=== PATIENT | male | born 1955 | race Caucasian/White ===

== ENCOUNTER → 2019-11-29 08:29 | Outpatient (BNVA) | payer MEDICARE, OTHER, BC, SELFPAY | PROVIDERS: Family Provider Family Medicine; PCP Family Medicine; Visit Provider Urology | DX: C61 Malignant neoplasm of prostate (principal); Z80.42 Family history of malignant neoplasm of prostate | CPT/HCPCS: 81001; 84153 ==

== ENCOUNTER → 2020-05-02 08:33 | Outpatient (BNVA) | payer MEDICARE, OTHER, SELFPAY | PROVIDERS: Family Provider Family Medicine; PCP Family Medicine; Visit Provider Urology | DX: C61 Malignant neoplasm of prostate (principal); Z80.42 Family history of malignant neoplasm of prostate | CPT/HCPCS: 81001; 84153 ==

== ENCOUNTER 2022-03-27 09:22 | Outpatient (CLI) | payer MEDICARE, OTHER, SELFPAY ==
--- NOTE | 2022-03-27 09:34 | NM_ITS ---
WS: [id number] NUCLEAR MEDICINE BONE SCAN Radiopharmaceutical: 23.5 Tc-99m MDP mCi IV Injection site: RIGHT antecubital Postinjection imaging delay: 1 hr CLINICAL INFORMATION: MALIGNANT NEOPLASM OF PROSTATE COMPARISON: None. FINDINGS: Bone lesions: There are no osseous lesions suspicious for metastatic disease. Soft tissue contours: Normal. Kidneys: Normal. Other findings: Uptake about the RIGHT MARQUIS. Degenerative type uptake both AC joints, sternoclavicular joints, and both kidneys. NM/NM bone scan whole body* [id number] IMPRESSION: No evidence of osseous metastatic disease.
--- NOTE | 2022-03-27 09:34 | CT_ITS ---
WS: [id number] CT ABDOMEN PELVIS TECHNIQUE: Contrast-enhanced CT of the abdomen and pelvis with coronal and sagittal reformatted image s. CLINICAL INFORMATION: MALIGNANT NEOPLASM OF PROSTATE COMPARISON: CT 8 27,019 DLP: 1607.[address] scans at [facility] use at least one of these dose optimization techniques: automated e xposure control; mA and/or kV adjustment per patient size (includes targeted exams where dose is matc hed to clinical indication); or iterative reconstruction. FINDINGS: Lung bases are well aerated. Mild diffuse fatty infiltration of the liver. Splenic granulomas. Normal GE junction. Normal portal vein and splenic vein. Cholelithiasis. Adrenal glands are normal. Normal pancreatic parenchymal enhancement. Normal caliber abdominal aorta. Mild aortic calcification. Normal renal parenchymal enhancement. Adrenal glands are normal. No hydronephrosis in RIGHT kidney. Dilated LEFT renal pelvis or peripelvic renal cyst similar to 2019. RIGHT MARQUIS degrades images in the pelvis. Prostate calcification. Prostate measures 4.8 x 3.7 cm. Sigm oid diverticulosis. No evidence of acute diverticulitis. No adenopathy in the abdomen or pelvis. No e vidence of blastic bony metastatic disease. Small fat-containing umbilical hernia. CT/CT abdomen pelvis w con* [id number] IMPRESSION: 1. No evidence of blastic metastatic disease. 2. RIGHT MARQUIS degrades images in the pelvis. Prostate calcification. 3. No abdominal or pelvic lymphadenopathy. 4. Sigmoid diverticulosis. No evidence of acute diverticulitis. 5. Extensive cholelithiasis. No gallbladder wall thickening. 6. LEFT peripelvic renal cysts or dilated renal pelvis similar to 2019. 7. Sigmoid diverticulosis. No evidence of acute diverticulitis
[2022-03-27 17:09] LABS: Blood Urea Nitrogen 14 mg/dL (8-23); Glomerular Filtration Rate 96.1 mL/min (90-130)
== END 2022-03-27 09:23 | disposition home or self-care (01) ==
LOC: RAD 09:26
PROVIDERS: PCP Family Medicine; Visit Provider Physician Assistant
DX: C61 Malignant neoplasm of prostate (principal); K57.30 Diverticulosis of large intestine without perforation or abscess without bleeding; K80.20 Calculus of gallbladder without cholecystitis without obstruction
CPT/HCPCS: 74177; 78306; 82565; 84520; A9561; Q9967

== ENCOUNTER 2022-05-21 14:12 | Oncology outpatient (recurring) (ONCR) | payer MEDICARE, OTHER, SELFPAY ==
--- NOTE | 2022-05-21 16:32 | ONCRAD EPV_ITS ---
Radiation Oncology Established Patient Visit Patient: Michael Hatfield [id number] : 1955> Age: 66> Sex: Male> Dictated by: Dr. Dalton Jeter Date of Service: 05/21/2022 Referring Physician(s) : Dr. Sj Abernathy and Dr. Eliud Amin Diagnosis: C61 - Malignant neoplasm of prostate, Diagnosed 05/27/2019 (Active) Stage T2b, N0, M0 Radiotherapy to Date: None. Current History: Mr. Rodriguez is a 66-year-old man who was found to have cancer of the prostate in 2019. He was seen in consultation by Dr. Loera. According to Dr. Loera's note, he had a PSA of 8.6, Bonnie score of 3+3 in 6 of 12 cores, and a palpable prostate nodule. He had negative imaging. His stage was [id number]. Dr. Loera planned to proceed with external beam radiation but Mr. Rodriguez decided to seek surgical consultation. I do not know if he actually had a visit but but according to Dr. Amin's note he was diagnosed with a [place] 6 cancer and was lost to follow-up. According to Mr. Rodriguez, he had some social issues which required his attention and he could not arrange to proceed with surgery. He thinks his PSA just before recent surgery was about 14. He had a bone scan 03/27/2022 that did not show any evidence of osseous metastatic disease. He had a CT of the abdomen and pelvis 03/27/2022 that was negative for lymphadenopathy or any other evidence of disease. The prostate measured 4.8 x 3.7 cm on that study. Surgery was performed 04/21/2022. A single lymph node was removed from each side of the pelvis and both were negative. The prostate was 75% occupied by a mass that measured 4 x 3 x 2.6 cm. Grossly the mass occupied 90% of the right side of the prostate and 30% of the left side with extension from apex to base. Histology was acinar adenocarcinoma. Histologic grade was Bonnie score 5+4 equal 9, grade group 5. Extraprostatic extension was noted, urinary bladder neck invasion was present, seminal vesicle invasion was present bilaterally, lymphovascular invasion was present and perineural invasion was present. The cancer extended to multiple margins including the right and left apex, right and left bladder base, right and left seminal vesicles, right vas deferens, right lateral and right posterior prostate. Stage was [id number]. started Mr. Rodriguez on Casodex and Lupron. Will be on Casodex 30 days and Lupron 1 year. He has requested that Mr. Rodriguez be evaluated for adjuvant radiation. Mr. Rodriguez tolerated surgery well overall. His only postop problem at this time is incontinence. He is doing Kegel exercises and states the incontinence is gradually improving. Current Medications: Acetaminophen, nia Allergy, fLUoxetine HCl, ibuprofen, naproxen, protonix, temazepam, traMADol HCl, zetia. Allergies: Statins. Current Complaints / Review of Systems: . Vital Signs: Performed on 05/21/2022 2:23 PM BMI - 26.193 kg/m2 (high), Height - 71 in, Weight - 187.8 lbs, Temperature - 99.3 f, Pulse - 67 /min, Respiration - 20 /min, O2 Sat - 97 %, Pain - 0, Fatigue - 0 and BP - 157/ 89 mm(hg)(high/). Physical Exam: General: Alert and oriented x 3. No acute distress. HEENT: Normocephalic, atraumatic. NECK: Supple without supraclavicular or jugular lymphadenopathy. LUNGS: Clear to auscultation bilaterally without rales, rhonchi or wheeze. HEART: Regular rate and rhythm, normal S1 and S2 without murmur, gallop or rub. MUSCULOSKELETAL: No tenderness or percussion pain over the axial skeleton, scapulae or pelvis. ABDOMEN: Soft, nontender, nondistended without masses or organomegaly. Bowell sounds are present. NEUROLOGIC: Cranial nerves II ???XII are grossly intact. Normal gait, no ataxia. Performance Status: ECOG 1 Lab: None pending. Pathology: Primary, c61 - malignant neoplasm of prostate, Diagnosed 05/27/2019 (active) stage x, t2b, nx, mx. 2021: Stage [id number] Imaging: See HPI Impression: Mr. Rodriguez is a candidate for postoperative radiation delivered in conjunction with hormonal therapy because of a high-grade cancer with seminal vesicle involvement and multiple positive margins. I discussed that with Mr. Rodriguez. I reviewed an approximately 7-week course of radiation. I discussed side effects and possible complications. I told him that it is important that he regain as much control of his bladder as possible before radiation is initiated. I discussed the side effects related to treatment. I discussed the remote risk of bowel or bladder injury that could require surgery. He wishes to proceed as recommended. He will return he will see Dr. Amin in late June and will return to the radiation center according to Dr. Amin's recommendation. Signed by: 05/21/2022 4:31:27 PM <<Signature on File>> Time spent with patient: CPT Code: CPT Code:
== END 2022-06-01 23:59 | disposition home or self-care (01) ==
PROVIDERS: PCP Family Medicine; Visit Provider Specialist
DX: C61 Malignant neoplasm of prostate (principal); C77.8 Secondary and unspecified malignant neoplasm of lymph nodes of multiple regions; C79.11 Secondary malignant neoplasm of bladder; Z79.899 Other long term (current) drug therapy
CPT/HCPCS: 99205

== ENCOUNTER 2022-12-05 10:36 | Oncology outpatient (recurring) (ONCR) | payer MEDICARE, OTHER, SELFPAY ==
--- NOTE | 2022-12-05 11:23 | ONCRAD EPV_ITS ---
Radiation Oncology Follow-Up Note Patient Name: Liu Rodriguez Date of : 1955 Date of Service: 12/05/2022 Attending Physician: Eliud Faustin M.D. Liu Rodriguez was seen for follow-up this morning in the management of a previously diagnosed prostate cancer. He initially was diagnosed in 2019 with prostate cancer. The initial PSA was 8.6 ng/mL. A TRUS biopsy completed on May 27, 2019 diagnosed an adenocarcinoma the prostate gland with a Bonnie score 3+3. A laparoscopic robot-assisted prostatectomy with bilateral pelvic lymphadenectomy was performed by Eliud Amin M.D. on April 21, 2022. The pathology report (outside hospital records were requested and reviewed in [facility]) confirmed an adenocarcinoma of the prostate (75% involvement) with a Bonnie score of 5+4 (grade group 5). Surgical margins were positive. Extraprostatic extension, urinary bladder neck invasion, lymphovascular invasion, and perineural invasion were present. A total of 2 pelvic lymph nodes (1 right pelvic lymph node and 1 left pelvic lymph node) did not harbor malignancy. Total androgen deprivation was prescribed. He was referred for adjuvant radiotherapy. I will request a PSMA scan for evaluation of potential metastatic disease. I have also ordered labs including PSA and testosterone levels. Signed by: Dr. Eliud Faustin 12/05/2022 11:22:19 AM
[2022-12-05 12:08] LABS: Alanine Aminotransferase 39 U/L (0-41); Albumin Level 4.6 g/dL (3.5-5.2); Alkaline Phosphatase 121 U/L (40-130); Anion Gap 15.7 (5-19); Aspartate Amino Transferase 28 U/L (0-40); Blood Urea Nitrogen 16 mg/dL (8-23); Calcium 9.7 mg/dL (8.5-10.5); Carbon Dioxide 25 mmol/L (22-29); Chloride 101 mmol/L (98-107); Globulin 2.5 g/dL (1.3-4.6); Glomerular Filtration Rate 95.8 mL/min (90-130); Glucose 93 mg/dL (65-115); Osmolality Calculated 285 mOsm/kg (285-295); Potassium 4.7 mmol/L (3.5-5.1); Sodium 137 mmol/L (136-145); Total Bilirubin 0.5 mg/dL (0.15-1.2); Total Protein 7.1 g/dL (6.6-8.7)
[2022-12-05 12:09] LABS: Testosterone Total 2.5 ng/dL (193-740)
[2022-12-05 12:13] LABS: Prostate Specific Antigen < 0.014 ng/mL (0-4)
== END 2022-12-30 23:59 | disposition home or self-care (01) ==
LOC: ONCMED 10:39
PROVIDERS: PCP Family Medicine; Visit Provider Radiology Radiation Oncology
DX: C61 Malignant neoplasm of prostate (principal); Z90.89 Acquired absence of other organs; Z79.818 Long term (current) use of other agents affecting estrogen receptors and estrogen levels; Z79.899 Other long term (current) drug therapy; Z92.3 Personal history of irradiation
CPT/HCPCS: 36415; 80053; 84153; 84403; 99214

== ENCOUNTER 2023-01-30 10:23 | Oncology outpatient (recurring) (ONCR) | payer MEDICARE, OTHER, SELFPAY ==
--- NOTE | 2023-01-30 11:09 | ONCRAD EPV_ITS ---
Radiation Oncology Follow-Up Note Patient Name: Liu Rodriguez Date of : 1955 Date of Service: 01/30/2023 Attending Physician: Eliud Faustin M.D. Liu Rodriguez was scheduled to review the results of a PSMA scan. He initially was diagnosed in 2018 with prostate cancer. The initial PSA was 8.6 ng/mL. A TRUS biopsy completed on May 27, 2019 diagnosed an adenocarcinoma the prostate gland with a [place] score 3+3. A laparoscopic robot-assisted prostatectomy with bilateral pelvic lymphadenectomy was performed by Eliud Amin M.D. on April 21, 2022. The pathology report (outside hospital records were requested and reviewed in [facility]) confirmed an adenocarcinoma of the prostate (75% involvement) with a Bonnie score of 5+4 (grade group 5). Surgical margins were positive. Extraprostatic extension, urinary bladder neck invasion, lymphovascular invasion, and perineural invasion were present. A total of 2 pelvic lymph nodes (1 right pelvic lymph node and 1 left pelvic lymph node) did not harbor malignancy. Total androgen deprivation was prescribed by his urologist. A PSA obtained in December was < 0.04 ng/mL and his testosterone level was 115 ng/dL. A PSMA scan ordered on January 16, 2023 subcentimeter lymphadenopathy within the right pelvis and right retropharyngeal space and a right third rib lesion (SUV 2.2) concerning for early metastatic disease. I will refer the patient to medical oncology for consideration of systemic therapy in conjunction with androgen deprivation therapy. Signed by: Eliud Faustin 01/30/2023 11:08:52 AM
== END 2023-01-30 23:59 | disposition home or self-care (01) ==
PROVIDERS: PCP Family Medicine; Visit Provider Radiology Radiation Oncology
DX: C61 Malignant neoplasm of prostate (principal); Z90.89 Acquired absence of other organs; Z79.818 Long term (current) use of other agents affecting estrogen receptors and estrogen levels; Z79.899 Other long term (current) drug therapy; Z92.3 Personal history of irradiation; R59.0 Localized enlarged lymph nodes; M89.9 Disorder of bone, unspecified
CPT/HCPCS: 99214

== ENCOUNTER 2023-02-12 07:55 | Oncology outpatient (recurring) (ONCR) | payer MEDICARE, OTHER, SELFPAY | END 2023-03-01 23:59 | disposition home or self-care (01) | PROVIDERS: PCP Family Medicine; Visit Provider Radiology Radiation Oncology | DX: C61 Malignant neoplasm of prostate (principal); Z90.89 Acquired absence of other organs; Z79.818 Long term (current) use of other agents affecting estrogen receptors and estrogen levels; Z79.899 Other long term (current) drug therapy; Z92.3 Personal history of irradiation; M89.9 Disorder of bone, unspecified; R59.0 Localized enlarged lymph nodes; Z79.52 Long term (current) use of systemic steroids | CPT/HCPCS: 99204 ==

== ENCOUNTER 2023-07-31 11:19 | Oncology outpatient (recurring) (ONCR) | payer MEDICARE, OTHER, SELFPAY ==
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
[2023-07-15 10:39] VITALS: BP 183/79; PULSE 71; RESP 18; TEMP 36.8; O2SAT 99
[2023-07-15 11:23] LABS: Prostate Specific Antigen < 0.014 ng/mL (0-4)
[2023-07-16 12:54] LABS: Alanine Aminotransferase 34 U/L (0-41); Albumin Level 4.5 g/dL (3.5-5.2); Alkaline Phosphatase 125 U/L (40-130); Anion Gap 16.3 (5-19); Aspartate Amino Transferase 21 U/L (0-40); Blood Urea Nitrogen 17 mg/dL (8-23); Calcium 9.3 mg/dL (8.5-10.5); Carbon Dioxide 22 mmol/L (22-29); Chloride 104 mmol/L (98-107); Globulin 2.6 g/dL (1.3-4.6); Glomerular Filtration Rate 95.8 mL/min (90-130); Glucose 92 mg/dL (65-115); Osmolality Calculated 285 mOsm/kg (285-295); Potassium 5.3 mmol/L (3.5-5.1); Sodium 137 mmol/L (136-145); Total Bilirubin 0.4 mg/dL (0.15-1.2); Total Protein 7.1 g/dL (6.6-8.7)
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
--- NOTE | 2023-07-29 16:28 | ONCRAD TMN_ITS ---
Radiation Oncology Weekly Treatment Management Patient: Michael Velazquez MR#: [id number] : 1955> Attending Physician: Oj He Date of Service: 07/29/2023 Referring Physician(s) : Dr. Sj Abernathy Diagnosis: C61 - Malignant neoplasm of prostate, Diagnosed 05/27/2019 (Active) Stage X, T2b, NX, MX Radiotherapy to date: Course: Prostate 2022, Treatment Site: [id number], Ref. ID: [id number], Energy: 6X, Dose/Fx (cGy): 180, #Fx: , Dose Correction (cGy): 0, Total Dose (cGy): 540, Start Date: 07/27/2023, Elapsed Days: 2 Reason for visit: The patient is being seen today as part of their regularly scheduled weekly on treatment visits to assess for acute toxicities from radiotherapy. Review of Systems: No interval changes or sxs. Vital Signs: Performed on 07/29/2023 1:05 PM BMI - 28.201 kg/m2 (high), Height - 71 in, Weight - 202.2 lbs, Temperature - 97.3 f, Pulse - 66 /min, Respiration - 18 /min, O2 Sat - 96 %, Pain - 6, Fatigue - 0 and BP - 148/ 76 mm(hg)(high/). Physical Exam: Imaging: Radiation therapy imaging related to accurate target localization (i.e. KV, MV and CBCT) was reviewed. Appropriate changes, if any, were made to ensure treatment accuracy. Plan: Continue treatment as planned. Signed by: Oj He 07/29/2023 4:26:03 PM Telemedicine Consent Patient seen today via Telemedicine by agreement and consent of patient. Telemedicine technology used during the visit include audio and, as available, review of images. This patient encounter is appropriate and reasonable under the circumstances given the patient???s particular presentation at this time. The patient has been advised of the potential risks and limitations of this mode of treatment (including but not limited to the absence of in-person examination) and has agreed to be treated in a remote fashion in spite of them. Any and all of the patient???s/patient???s family???s questions on this issue have been answered and I have made no promises or guarantees to the patient. The patient has also been advised to contact this office for worsening conditions or problems, and seek emergency medical treatment and/or call 911 if the patient deems either necessary.
== END 2023-08-01 23:59 | disposition home or self-care (01) ==
PROVIDERS: Radiology Radiation Oncology; PCP Family Medicine; Visit Provider Radiology Radiation Oncology
DX: Z51.0 Encounter for antineoplastic radiation therapy (principal); C61 Malignant neoplasm of prostate
CPT/HCPCS: 36415; 77300; 77301; 77334; 77338; 77385; 80053; 84153; 99024; 99215

== ENCOUNTER 2023-08-20 12:53 | Oncology outpatient (recurring) (ONCR) | payer MEDICARE, OTHER, SELFPAY ==
--- NOTE | 2023-08-11 15:58 | ONCRAD TMN_ITS ---
Radiation Oncology Weekly Treatment Management Patient: Liu Rodriguez MR#: [id number] : 1955> Attending Physician: Oj He Date of Service: 08/11/2023 Referring Physician(s) : Dr. Sj Abernathy Diagnosis: C61 - Malignant neoplasm of prostate, Diagnosed 05/27/2019 (Active) Stage X, T2b, NX, MX Radiotherapy to date: Course: Prostate 2022, Treatment Site: [id number], Ref. ID: [id number], Energy: 6X, Dose/Fx (cGy): 180, #Fx: , Dose Correction (cGy): 0, Total Dose (cGy): 2,160, Start Date: 07/27/2023, Elapsed Days: 15 Reason for visit: The patient is being seen today as part of their regularly scheduled weekly on treatment visits to assess for acute toxicities from radiotherapy. Review of Systems: He had hip pain treated with Naproxen and Flexeril. Ongoing nocturia x4. Oxybutynin did not help but caused dry mouth. Minimal diarrhea. Vital Signs: Performed on 08/11/2023 1:01 PM BMI - 28.397 kg/m2 (high), Height - 71 in, Weight - 203.6 lbs, Temperature - 96.9 f, Pulse - 77 /min, Respiration - 16 /min, O2 Sat - 96 %, Pain - 0, Fatigue - 0 and BP - 145/ 89 mm(hg)(high/). Physical Exam: Imaging: Radiation therapy imaging related to accurate target localization (i.e. KV, MV and CBCT) was reviewed. Appropriate changes, if any, were made to ensure treatment accuracy. Plan: Good tolerance of treatment. Continue as planned. Signed by: Oj He 08/11/2023 3:57:42 PM Telemedicine Consent Patient seen today via Telemedicine by agreement and consent of patient. Telemedicine technology used during the visit include audio and, as available, review of images. This patient encounter is appropriate and reasonable under the circumstances given the patient???s particular presentation at this time. The patient has been advised of the potential risks and limitations of this mode of treatment (including but not limited to the absence of in-person examination) and has agreed to be treated in a remote fashion in spite of them. Any and all of the patient???s/patient???s family???s questions on this issue have been answered and I have made no promises or guarantees to the patient. The patient has also been advised to contact this office for worsening conditions or problems, and seek emergency medical treatment and/or call 911 if the patient deems either necessary.
--- NOTE | 2023-08-19 13:25 | ONCRAD TMN_ITS ---
Radiation Oncology Weekly Treatment Management Patient: Michael Hatfield MR#: [id number] : 1955 Attending Physician: Oj He Date of Service: 08/18/2023 Referring Physician(s) : Dr. Sj Abernathy Diagnosis: C61 - Malignant neoplasm of prostate, Diagnosed 05/27/2019 (Active) Stage X, T2b, NX, MX Radiotherapy to date: Course: Prostate 2022, Treatment Site: [id number], Ref. ID: [id number], Energy: 6X, Dose/Fx (cGy): 180, #Fx: ,Dose Correction (cGy): 0 ,Total Dose (cGy): 3,060 ,Start Date: 07/27/2023 ,Elapsed Days: 22 Reason for visit: The patient is being seen today as part of their regularly scheduled weekly on treatment visits to assess for acute toxicities from radiotherapy. Review of Systems: Hip pain now absent. It was previously treated with Motrin and Flexeril. Urination is ok. Stable frequency 3 to 4 x nocturia. Tried oxybutynin. Bowels ok. Got in his Corvette with no pain Vital Signs: Performed on 08/18/2023 1:08 PM BMI - 28.146 kg/m2 (high), Height - 71 in, Weight - 201.8 lbs, Temperature - 97.4 f, Pulse - 92 /min, Respiration - 16 /min, O2 Sat - 98 %, Pain - 0, Fatigue - 2 and BP - 138/ 92 mm(hg)(/high). Physical Exam: Imaging: Radiation therapy imaging related to accurate target localization (i.e. KV, MV and CBCT) was reviewed. Appropriate changes, if any, were made to ensure treatment accuracy. Plan: Good tolerance of treatment. Continue as planned. Signed by: Oj He 08/19/2023 1:24:24 PM Telemedicine Consent Patient seen today via Telemedicine by agreement and consent of patient. Telemedicine technology used during the visit include audio and, as available, review of images. This patient encounter is appropriate and reasonable under the circumstances given the patient???s particular presentation at this time. The patient has been advised of the potential risks and limitations of this mode of treatment (including but not limited to the absence of in-person examination) and has agreed to be treated in a remote fashion in spite of them. Any and all of the patient???s/patient???s family???s questions on this issue have been answered and I have made no promises or guarantees to the patient. The patient has also been advised to contact this office for worsening conditions or problems, and seek emergency medical treatment and/or call 911 if the patient deems either necessary.
== END 2023-08-20 23:59 | disposition home or self-care (01) ==
PROVIDERS: PCP Family Medicine; Visit Provider Radiology Radiation Oncology
DX: Z51.0 Encounter for antineoplastic radiation therapy (principal); C61 Malignant neoplasm of prostate
CPT/HCPCS: 77014; 77336; 77385; 77427; 99024

== ENCOUNTER 2023-09-01 12:50 | Oncology outpatient (recurring) (ONCR) | payer MEDICARE, OTHER, SELFPAY ==
--- NOTE | 2023-08-25 13:59 | ONCRAD TMN_ITS ---
Radiation Oncology Weekly Treatment Management Patient: Michael Hatfield MR#: [id number] : 1955 Attending Physician: Zoran Begum Date of Service: 08/25/2023 Referring Physician(s) : Dr. Sj Abernathy Diagnosis: C61 - Malignant neoplasm of prostate, Diagnosed 05/27/2019 (Active) Stage X, T2b, NX, MX Radiotherapy to date: Course: Prostate 2022, Treatment Site: [id number], Ref. ID: [id number], Energy: 6X, Dose/Fx (cGy): 180, #Fx: , Dose Correction (cGy): 0, Total Dose (cGy): 3,960, Start Date: 07/27/2023, Elapsed Days: 29 Reason for visit: The patient is being seen today as part of their regularly scheduled weekly on treatment visits to assess for acute toxicities from radiotherapy. Review of Systems: Patient denies any hip pain. He has no complaints of dysuria although his nocturia continues at 3-4 times per night. Vital Signs: Performed on 08/25/2023 1:07 PM BMI - 28.285 kg/m2 (high), Height - 71 in, Weight - 202.8 lbs, Temperature - 97.2 f, Pulse - 79 /min, Respiration - 16 /min, O2 Sat - 97 %, Pain - 0, Fatigue - 1 and BP - 138/ 77 mm(hg). Physical Exam: Alert and oriented male appearing his stated age. Skin in the treatment area is intact without erythema or desquamation. Patient amatory without assistance. Imaging: Radiation therapy imaging related to accurate target localization (i.e. KV, MV and CBCT) was reviewed. Appropriate changes, if any, were made to ensure treatment accuracy. Plan: Continue prescribed radiation therapy. Signed by: Zoran Begum 08/25/2023 1:57:33 PM
--- NOTE | 2023-09-01 13:38 | ONCRAD TMN_ITS ---
Radiation Oncology Weekly Treatment Management Patient: Michael Velazquez MR#: [id number] : 1955> Attending Physician: Dr. Naida Skinner Date of Service: 09/01/2023 Fractions: 25 of 25 pelvis, 2 of 14 boost Referring Physician(s) : Dr. Sj Abernathy Diagnosis: C61 - Malignant neoplasm of prostate, Diagnosed 05/27/2019 (Active) Stage X, T2b, NX, MX Radiotherapy to date: Course: Prostate 2022, Treatment Site: [id number], Ref. ID: [id number], Energy: 6X, Dose/Fx (cGy): 180, #Fx: / , Dose Correction (cGy): 0, Total Dose (cGy): 4,500, Start Date: 07/27/2023, Elapsed Days: 32 Course: Prostate 2022, Treatment Site: [id number], Ref. ID: [id number], Energy: 6X, Dose/Fx (cGy): 180, #Fx: , Dose Correction (cGy): 0, Total Dose (cGy): 360, Start Date: 08/31/2023, Elapsed Days: 1 Reason for visit: The patient is being seen today as part of their regularly scheduled weekly on treatment visits to assess for acute toxicities from radiotherapy. Review of Systems: Patient denies any complaints in regards to bowel or bladder habits. He has had hot flashes and weight gain since being given the Lupron Vital Signs: Performed on 09/01/2023 1:05 PM BMI - 28.034 kg/m2 (high), Height - 71 in, Weight - 201 lbs, Temperature - 96.7 f, Pulse - 85 /min, Respiration - 18 /min, O2 Sat - 98 %, Pain - 98 (high), Fatigue - 2 and BP - 147/ 90 mm(hg)(high/). Physical Exam: Patient is in no apparent distress. Alert and oriented x3. Gait speech within normal limits. Skin is warm and dry without changes. Imaging: Radiation therapy imaging related to accurate target localization (i.e. KV, MV and CBCT) was reviewed. Appropriate changes, if any, were made to ensure treatment accuracy. Plan: At this time the patient has completed the pelvic part of the treatment. He tolerated this well with essentially no side effects. We will continue with his treatments as planned. Signed by: Dr. Naida Skinner 09/01/2023 1:37:23 PM
== END 2023-09-01 23:59 | disposition home or self-care (01) ==
PROVIDERS: PCP Family Medicine; Visit Provider Radiology Radiation Oncology
DX: Z51.0 Encounter for antineoplastic radiation therapy (principal); C61 Malignant neoplasm of prostate
CPT/HCPCS: 77014; 77336; 77385; 77427; 99024

== ENCOUNTER 2023-09-18 11:23 | Oncology outpatient (recurring) (ONCR) | payer MEDICARE, OTHER, SELFPAY ==
--- NOTE | 2023-09-08 13:33 | ONCRAD TMN_ITS ---
Radiation Oncology Weekly Treatment Management Patient: Liu Rodriguez MR#: [id number] : 1955 Attending Physician: Dr. Naida Skinner Date of Service: 09/08/2023 Fractions: 25 out of 25 completed, 7 of 14 boost Chief complaints: Patient is really doing quite well. He has no complaints in regards to bowel bladder habits. He finds that if he does not take his normal medications at bedtime he often has to get up at night to urinate. He has an appointment in mid-October with his urologist in [place]. We talked about how normally we would give him a 1 month follow-up with his PSA but since he is seeing his urologist around that time he can keep that appointment and we will see him subsequently. Referring Physician(s) : Dr. Sj Abernathy Diagnosis: C61 - Malignant neoplasm of prostate, Diagnosed 05/27/2019 (Active) Stage X, T2b, NX, MX Radiotherapy to date: Course: Prostate 2022, Treatment Site: [id number], Ref. ID: [id number], Energy: 6X, Dose/Fx (cGy): 180, #Fx: , Dose Correction (cGy): 0, Total Dose (cGy): 4,500, Start Date: 07/27/2023, End Date: 08/28/2023, Elapsed Days: 32 Prostate 2022, Treatment Site: [id number], Ref. ID: [id number], Energy: 6X, Dose/Fx (cGy): 180, #Fx: , Dose Correction (cGy): 0, Total Dose (cGy): 1,260, Start Date: 08/31/2023, Elapsed Days: 8 Reason for visit: The patient is being seen today as part of their regularly scheduled weekly on treatment visits to assess for acute toxicities from radiotherapy. Review of Systems: As above Vital Signs: Performed on 09/08/2023 12:58 PM BMI - 27.978 kg/m2 (high), Height - 71 in, Weight - 200.6 lbs, Temperature - 97.6 f, Pulse - 70 /min, Respiration - 16 /min, O2 Sat - 98 %, Pain - 0, Fatigue - 0 and BP - 147/ 86 mm(hg)(high/). Physical Exam: Patient is in no apparent distress. He is in good spirits. Skin is warm and dry without changes. Abdomen is nonprotuberant. Imaging: Radiation therapy imaging related to accurate target localization (i.e. KV, MV and CBCT) was reviewed. Appropriate changes, if any, were made to ensure treatment accuracy. Plan: Patient has nearly completed his entire course of treatment. He is in good spirits. He has had essentially no symptoms. At this point we will continue with his treatments as planned. Signed by: Dr. Naida Skinner 09/08/2023 1:30:44 PM
--- NOTE | 2023-09-16 14:33 | ONCRAD TMN_ITS ---
Radiation Oncology Weekly Treatment Management Patient: Michael Velazquez MR#: [id number] : 1955> Attending Physician: Oj He Date of Service: 09/16/2023 Referring Physician(s) : Dr. Sj Abernathy Diagnosis: C61 - Malignant neoplasm of prostate, Diagnosed 05/27/2019 (Active) Stage X, T2b, NX, MX Radiotherapy to date: Course: Prostate 2022, Treatment Site: [id number], Ref. ID: [id number], Energy: 6X, Dose/Fx (cGy): 180, #Fx: , Dose Correction (cGy): 0, Total Dose (cGy): 4,500, Start Date: 07/27/2023, End Date: 08/28/2023, Elapsed Days: 32 Treatment Site: Boost70.2Gy, Ref. ID: [id number], Energy: 6X, Dose/Fx (cGy): 180, #Fx: , Dose Correction (cGy): 0, Total Dose (cGy): 2,160, Start Date: 08/31/2023, Elapsed Days: 16 Reason for visit: The patient is being seen today as part of their regularly scheduled weekly on treatment visits to assess for acute toxicities from radiotherapy. Review of Systems: Doing well. Oxybutynin assists in reduced nocturia. He tolerates the dry mouth that oxybutynin causes. No other urinary changes. Bowels ok. Active with mulching leaves. Vital Signs: Performed on 09/16/2023 1:07 PM BMI - 28.006 kg/m2 (high), Height - 71 in, Weight - 200.8 lbs, Temperature - 97.8 f, Pulse - 84 /min, Respiration - 16 /min, O2 Sat - 97 %, Pain - 0, Fatigue - 5 and BP - 148/ 84 mm(hg)(high/). Physical Exam: Imaging: Radiation therapy imaging related to accurate target localization (i.e. KV, MV and CBCT) was reviewed. Appropriate changes, if any, were made to ensure treatment accuracy. Plan: Good tolerance of treatment. Continue as planned. Oxybutynin 10 mg ER #90 renewed. Signed by: Oj He 09/16/2023 2:31:31 PM
--- NOTE | 2023-09-21 06:05 | N.ONRD TS_ITS ---
Radiation Oncology Treatment Summary Patient: Liu Rodriguez MR#: [id number] : 1955 Age: 67 Sex: Male Dictated by: Oj He Date of Service: 09/18/2023 Referring Physician(s) : Dr. Sj Abernathy Diagnosis: C61 - Malignant neoplasm of prostate, Diagnosed 05/27/2019 (Active) Stage X, T2b, NX, MX Radiotherapy to Date: Course: Prostate 2022, Treatment Site: [id number], Ref. ID: [id number], Energy: 6X, Dose/Fx (cGy): 180, #Fx: / , Dose Correction (cGy): 0, Total Dose (cGy): 4,500, Start Date: 07/27/2023, End Date: 08/28/2023, Elapsed Days: 32 Course: Prostate 2022, Treatment Site: [id number], Ref. ID: [id number], Energy: 6X, Dose/Fx (cGy): 180, #Fx: / 14, Dose Correction (cGy): 0, Total Dose (cGy): 2,520, Start Date: 08/31/2023, End Date: 09/18/2023, Elapsed Days: 18 Clinical Summary: The patient tolerated RT well. Plan: End of treatment today. Follow up in with his urologist with PSA in 1 to 3 months. Follow up here PRN. Signed by: Oj He>09/21/2023 6:04:27 AM <<Signature on File>>
== END 2023-09-18 23:59 | disposition home or self-care (01) ==
PROVIDERS: PCP Family Medicine; Visit Provider Radiology Radiation Oncology
DX: Z51.0 Encounter for antineoplastic radiation therapy (principal); C61 Malignant neoplasm of prostate
CPT/HCPCS: 77014; 77336; 77385; 77417; 77427; 99024